=== PATIENT | female | born 1990 | race Caucasian/White ===

== ENCOUNTER 2023-10-15 07:55 | Outpatient (CLI) | payer BC ==
[2023-10-15] MEDS ORDERED: Iopamidol 300 61% 100 ML VIAL FS ONE (14:35)
== END 2023-10-15 07:56 | disposition home or self-care (01) ==
LOC: CSHRAD 07:55
PROVIDERS: ATTEND Student in an Organized Health Care Education/Training Program
DX: Z31.41 Encounter for fertility testing (principal)
CPT/HCPCS: 58340; 74740; Q9967